=== PATIENT | male | born 1985 | race Caucasian/White ===

== ENCOUNTER 2024-02-16 20:04 | Emergency (ER) | payer MEDICARE, OTHER, MEDICAID, SELFPAY ==
[2024-02-16 20:09] VITALS: BP 123/81; PULSE 94; RESP 18; TEMP 37.8; O2SAT 96
[2024-02-16 20:38] VITALS: BP 131/81; PULSE 99; RESP 19; TEMP 37.3; O2SAT 99
--- NOTE | 2024-02-16 20:46 | PD.EDURI ---
Upper Respiratory Inf. RME/HPI General Chief Complaint: Anxiety Stated Complaint: ANXIETY Time Seen by Provider: 02/16/24 20:24 Source: patient, RN notes reviewed and old records reviewed Arrival date/time: 02/16/24 20:04 Mode of arrival: EMS Limitations: no limitations RME / HPI RME / HPI Narrative: 38yom presents to ED via EMS for sore throat and chills that initiated yesterday. Patient reports feeling sensation of his throat closing and he could not swallow 2/2 pain. He began having heart palpitations and feeling anxious due to symptoms. History of anxiety. Patient states palpitations have resolved now, only c/o throat pain. No fever, sob, cp, nv or headache reported. 50mg IM Benadryl given by EMS prior to arrival. Related Data Previous Rx's ?Medication ?Instructions ?Recorded acetaminophen 500 mg tablet 1,000 mg (2 x 500 mg) PO Q6H PRN 02/16/24 (Tylenol Extra Strength) pain #30 tabs ibuprofen 600 mg tablet 600 mg PO Q6H PRN pain #30 tabs 02/16/24 Allergies Allergy/AdvReac Type Severity Reaction Status Date / Time No Known Allergies Allergy Verified 02/16/24 22:20 Review of Systems Review of Systems Systems Reviewed: All systems reviewed, normal except as documented Constitutional Constitutional: Denies chills and Denies fever(s) ENT Ears, Nose, Mouth, and Throat: Denies dizziness, Denies nasal congestion, Denies neck pain, Reports sore throat, Reports throat swelling and Denies tongue swelling Cardiovascular Cardiovascular: Denies chest pain, Denies dyspnea, Reports palpitations and Denies syncope Respiratory Respiratory: Denies dyspnea Gastrointestinal Gastrointestinal: Denies nausea and Denies vomiting Musculoskeletal Musculoskeletal: Denies neck pain Neurologic Neurologic: Denies dizziness and Denies syncope Endocrine Endocrine: Reports palpitations Allergic/Immunologic Allergic/Immunologic: Reports throat swelling and Denies tongue swelling Past Medical History Past Medical History GASTROINTESTINAL: Positive Obesity PSYCHO/SOCIAL: Positive Anxiety Social History SMOKING STATUS: Never smoker SUBSTANCE USE: does not use ALCOHOL: Current (Social) ED Exam General Limitations: Present no limitations General appearance: Present alert and in no apparent distress Head Head exam: Present atraumatic and normocephalic Eye Eye exam: Present normal appearance, PERRL and EOMI ENT ENT exam: Present mucous membranes moist and other (Mild pharyngeal erythema. 2+ tonsillar swelling b/l without exudate, uvula midline. Airway patent.) Neck Neck exam: Present normal inspection and full ROM; Absent lymphadenopathy Chest Chest inspection: Present normal inspection and symmetric chest wall rise Respiratory Respiratory exam: Present normal lung sounds bilaterally and other (No wheezing, rales or rhonchi); Absent respiratory distress Cardiovascular Cardiovascular exam: Present regular rate and normal rhythm Extremities Exam Extremities exam: Present normal inspection and full ROM; Absent pedal edema Neurological Exam Neurological exam: Present alert and oriented X3 Psychiatric Psychiatric exam: Present anxious Skin Skin exam: Present warm, dry, intact and normal color Course Quality Measures none Orders Category Date Time Status EKG (ED ONLY) *Do not use* NOW Care 02/16/24 20:45 Completed EKG (ED Only) Stat Exams 02/16/24 20:45 Ordered Strep A Rapid Stat Lab 02/16/24 20:55 Completed Acetaminophen Tab [Tylenol ES Tab] Med 02/16/24 20:46 Discontinued 1,000 mg PO X1 ONE Dexamethasone Inj [Decadron Inj] Med 02/16/24 20:46 Discontinued 10 mg PO X1 ONE Vital Signs Vital signs: Vital Signs Temperature 100.1 F 02/16/24 20:09 Pulse Rate 94 02/16/24 20:09 Respiratory Rate 18 02/16/24 20:09 Blood Pressure 123/81 02/16/24 20:09 Pulse Oximetry (%) 96 02/16/24 20:09 Oxygen Delivery Method Room Air 02/16/24 20:09 Procedures -ED EKG Interpretation #1: Date of EK02/16/24 Rate: 98 Interpretation: Interpreted by me EKG Impression: Normal sinus rhythm, No acute ST-T changes, No ectopy, No ischemic changes, Normal QRS, Normal intervals and Normal axis Upper Respiratory Infection MDM Narrative MDM Narrative:: 38yom presents to ED via EMS for sore throat and chills that initiated yesterday. Patient reports feeling sensation of his throat closing and he could not swallow 2/2 pain. He began having heart palpitations and feeling anxious due to symptoms. History of anxiety. Patient states palpitations have resolved now, only c/o throat pain. No fever, sob, cp, nv or headache reported. 50mg IM Benadryl given by EMS prior to arrival. Patient data External records reviewed:: None (No prior visits) Clinical information provided by:: patient and EMS Social determinants that could affect healthcare access:: other (specify) (Poor access to healthcare) Patient has the following chronic illnesses:: Anxiety How is presenting disease/condition affected by chronic disease/condition?: exacerbated by Evaluation data The following diagnostics were reviewed and interpreted by me:: lab results and EKG tracing(s) Lab and/or radiology exams considered but not ordered:: None Interpretation Summary: Negative strep EKG: Normal sinus Medications / Prescriptions Medications or Prescriptions considered but not ordered:: No antibiotics recommended at this time Medication administrations:: Medication Administration History Discontinued Medications Acetaminophen (Acetaminophen 500 Mg Tablet) 1,000 mg PO X1 ONE Stop: 02/16/24 20:47 Last Admin: 02/16/24 21:00 Dose: 1,000 mg Documented By: KAELYN Dexamethasone Sodium Phosphate (Dexamethasone Sod Phos Inj 10 Mg/Ml Vial) 10 mg PO X1 ONE Stop: 02/16/24 20:47 Last Admin: 02/16/24 21:00 Dose: 10 mg Documented By: KAELYN Above medications administered in ED Consultations Consultation(s) initiated? (list below): No Diagnosis Upper Respiratory Differential Diagnosis: upper respiratory infection, sinusitis, viral infection and pharyngitis Most likely diagnosis given after review of the tests above:: Viral pharyngitis Admission Indicated Admission indicated?: not indicated Admission Request Was there a request for admission?: No Disposition Plan Disposition Plan: Discharge Discharge Attestation Discharge Attestation: The patient and all family members were given an opportunity to ask questions and understood the discharge instructions. Discharge instructions specifically effects, indications for sooner follow up or return to the emergency department, and the expected course of current diagnosis. Patient condition: Stable Discharge Plan Plan Patient Disposition: HOME (Self Care) Patient condition on transfer: Stable Prescriptions/Referrals Prescriptions/Med Rec: New ibuprofen 600 mg tablet 600 mg PO Q6H PRN (Reason: pain) Qty: 30 0RF acetaminophen [Tylenol Extra Strength] 500 mg tablet 1,000 mg PO Q6H PRN (Reason: pain) Qty: 30 0RF Referrals: Katie Hills PA-C [Primary Care Provider] - In 1 week Problem List Clinical Impression: Viral pharyngitis, Acute anxiety Patient/Caregiver Discharge Instructions Education Materials: When You Have a Sore Throat Additional Instructions: Alternate ibuprofen and Tylenol as needed for pain. You can get Cepacol lozenges [id number] which can also help with throat pain. Follow-up with your primary care physician if symptoms persist or worsen. Print Language: Algerian Stand Alone Forms: Erin Award Info., Work/School Release, Patient Portal Info Letter PA/WIRE HARNESS DESIGN ENGINEER Supervising Physician PA/WIRE HARNESS DESIGN ENGINEER Supervising Physician: Noah
[2024-02-16] MEDS: DEXAMETHASONE SOD PHOS INJ 10 MG/ML VIAL PO (21:00)
[2024-02-16] MEDS: ACETAMINOPHEN 500 MG TABLET 1000 MG PO (21:00)
[2024-02-16 21:26] LABS: Strep A Rapid Negative (Negative)
[2024-02-16 22:19] VITALS: RESP 18
== END 2024-02-16 22:20 | disposition home or self-care (01) ==
PROVIDERS: Physician Assistant; Emergency Provider Emergency Medicine; PCP Physician Assistant Medical
DX: F41.9 Anxiety disorder, unspecified (principal); J02.8 Acute pharyngitis due to other specified organisms; B97.89 Other viral agents as the cause of diseases classified elsewhere
CPT/HCPCS: 87651; 93005; 99283; J1100; A9270